=== PATIENT | female | born 1990 | race Caucasian/White ===

== ENCOUNTER 2017-01-13 00:22 | Inpatient (IN) | payer MEDICAID ==
[2017-01-13] VITALS (8 sets, daily range): BP systolic 95–124; BP diastolic 48–77
[~2017-01-13] VITALS: Ht 149.9 cm; Wt 78.0 kg
[2017-01-13 01:08] LABS: BASOPHIL % 0.5 % (0-2); PLATELET COUNT 375 x10^3mcL (130-400); RED CELL DISTRIBUTION WIDTH 14.1 % (11.5-14.5)
[2017-01-13 01:18] LABS: CREATININE SERUM 1.2 mg/dL (0.6-1.0); POTASSIUM SERUM 4.2 mmol/L (3.5-5.1)
[2017-01-13 01:35] LABS: ALBUMIN 3.9 g/dL (3.4-5.0); BILIRUBIN TOTAL 0.4 mg/dL (0.20-1.00); TOTAL PROTEIN, SERUM 7.6 g/dL (6.4-8.2)
[2017-01-13 04:44] LABS: microscopic required? NO
[2017-01-13 05:15] LABS: urine erythrocyte NEGATIVE (NEGATIVE)
[2017-01-13 05:21] LABS: T3 TOTAL 1.12 ng/mL
[2017-01-13 05:35] LABS: MAGNESIUM 1.9 mg/dL (1.8-2.4); PHOSPHOROUS 3.1 mg/dL (2.5-4.9)
[2017-01-13 05:39] LABS: CHOLESTEROL/HDL RATIO 4.3
[2017-01-13 05:53] LABS: FREE T4 0.91 ng/dL (0.76-1.46); FREE THYROXINE INDEX 2.6 ug/dL (1.4-4.5); T4(THYROXINE) 7.1 ug/dL (4.7-13.3)
[2017-01-13 21:30] LABS: AMPHETAMINE QUAL UR NONE DETECTED (NEG <=1000)
[2017-01-14 05:15] VITALS: BP 102/61
[2017-01-14 09:12] VITALS: BP 120/85; BP 90/56
[2017-01-14 10:38] VITALS: BP 127/73
[2017-01-14 17:31] VITALS: BP 95/49
[2017-01-14 22:08] VITALS: BP 119/77
[2017-01-15 05:26] VITALS: BP 106/63
[2017-01-15 08:53] VITALS: BP 106/63
[2017-01-15 09:50] VITALS: BP 101/59
[2017-01-15] MEDS ORDERED: FLE10 PO (12:26)
[2017-01-15] MEDS ORDERED: ZOF4 PO (12:27)
== END 2017-01-15 14:00 | disposition home or self-care (01) | DRG 48 ==
LOC: ED 00:22 → DU 04:27
PROVIDERS: Emergency Medicine; ADMIT Family Medicine
DX: G90.9 Disorder of the autonomic nervous system, unspecified (principal); E78.5 Hyperlipidemia, unspecified; R73.03 Prediabetes; F12.10 Cannabis abuse, uncomplicated; Z68.34 Body mass index [BMI] 34.0-34.9, adult
CPT/HCPCS: 82962; 83880; 84439; 97110-GP; 97116-GP; 97530-GP; J1885; J2405; J7030; Q0092

== ENCOUNTER 2018-04-08 12:39 | Emergency (ER) | payer OTHER ==
[~2018-04-08] VITALS: Ht 149.9 cm; Wt 89.4 kg
[~2018-04-08 12:39] MED LIST: FLE10 PO; ZOF4 PO
[2018-04-08 12:51] VITALS: Ht 149.9 cm; Wt 89.4 kg
[2018-04-08 15:47] LABS: BASOPHIL % 0.5 % (0-2); PLATELET COUNT 326 x10^3mcL (130-400)
[2018-04-08 15:53] LABS: CALCIUM 8.9 mg/dL (8.5-10.1); CARBON DIOXIDE 24.3 mmol/L (21-32); CHLORIDE SERUM 103 mmol/L (98-107); CREATININE SERUM 0.6 mg/dL (0.6-1.0); GFR1 > 60 mL/min; GLUCOSE SERUM 106 mg/dL (74-106); SODIUM SERUM 138 mmol/L (136-145)
[2018-04-08 15:58] LABS: ALKALINE PHOSPHATASE 86 U/L (46-116); ALT/SGPT 85 U/L (14-59); BILIRUBIN TOTAL 0.73 mg/dL (0.20-1.00); TOTAL PROTEIN, SERUM 7.7 g/dL (6.4-8.2)
[2018-04-08 16:12] LABS: AST/SGOT 40 U/L (15-37)
[2018-04-08 17:18] VITALS: BP 148/77
== END 2018-04-08 17:18 | disposition home or self-care (01) ==
LOC: ED 12:39
PROVIDERS: Emergency Medicine
DX: K91.872 Postprocedural seroma of a digestive system organ or structure following a digestive system procedure (principal); L08.9 Local infection of the skin and subcutaneous tissue, unspecified; N20.0 Calculus of kidney; J45.909 Unspecified asthma, uncomplicated
CPT/HCPCS: J0696; J1885

== ENCOUNTER 2019-02-25 07:39 | Emergency (ER) | payer MEDICAID ==
[~2019-02-25] VITALS: Ht 149.9 cm; Wt 87.1 kg
[2019-02-25 07:46] VITALS: Ht 149.9 cm; Wt 87.1 kg
[2019-02-25 08:37] LABS: BASOPHIL % 0.6 % (0-2); PLATELET COUNT 311 x10^3mcL (130-400); RED CELL DISTRIBUTION WIDTH 14.3 % (11.5-14.5)
[2019-02-25 08:55] LABS: CALCIUM 8.5 mg/dL (8.5-10.1); CARBON DIOXIDE 26.9 mmol/L (21-32); CHLORIDE SERUM 106 mmol/L (98-107); CREATININE SERUM 0.6 mg/dL (0.6-1.0); GFR1 > 60 mL/min; GLUCOSE SERUM 103 mg/dL (74-106); POTASSIUM SERUM 4.3 mmol/L (3.5-5.1); SODIUM SERUM 140 mmol/L (136-145)
[2019-02-25 09:02] LABS: ALBUMIN 3.6 g/dL (3.4-5.0); ALKALINE PHOSPHATASE 70 U/L (46-116); ALT/SGPT 68 U/L (14-59); AST/SGOT 25 U/L (15-37); BILIRUBIN TOTAL 0.47 mg/dL (0.20-1.00); TOTAL PROTEIN, SERUM 6.8 g/dL (6.4-8.2)
[2019-02-25 09:39] LABS: UA SPECIFIC GRAVITY 1.025 (1.005-1.035); microscopic required? YES; urine erythrocyte NEGATIVE (NEGATIVE)
[2019-02-25 09:46] LABS: AMPHETAMINE QUAL UR NONE DETECTED (See below)
[2019-02-25 10:40] VITALS: BP 120/69
== END 2019-02-25 10:57 | disposition home or self-care (01) ==
LOC: ED 07:39
PROVIDERS: Emergency Medicine
DX: R20.2 Paresthesia of skin (principal); J45.909 Unspecified asthma, uncomplicated
CPT/HCPCS: 36415; J7030; Q0092